=== PATIENT | female | born 1990 | race Caucasian/White ===

== ENCOUNTER 2016-09-27 23:25 | Emergency (ER) | payer OTHER ==
[2016-09-28 01:15] LABS: BASOPHIL 0.3 % (0-2); EOSINOPHIL 2.1 % (0-5); HCT 41.5 % (37.0-47.0); HGB 14.3 g/dl (12.5-16.0); LYMPHOCYTE 18.7 % (15-48); MCH 31.5 pg (25.0-31.0); MCHC 34.5 g/dL (32.0-36.0); MCV 91.4 fL (78.0-100.0); MONOCYTE 6.8 % (0-12); MPV 10.9 fL (6.0-9.5); NEUTROPHIL 72.1 % (41-80); PLT 263 K/uL (150-400); RBC 4.54 M/uL (4.20-5.40); RDW 12.4 % (11.5-14.0)
[2016-09-28 01:37] LABS: ALBUMIN 4.6 g/dL (3.5-5.0); BILIRUBIN - TOTAL 0.3 mg/dL (0.1-1.0); CREATININE 0.7 mg/dL (0.5-1.0); GLOBULIN (CALCULATION) 2.9 g/dL (2.2-4.2); POTASSIUM 3.8 mmol/L (3.5-5.1); TOTAL PROTEIN 7.5 g/dL (6.4-8.3)
== END 2016-09-28 02:27 | disposition home or self-care (01) ==
LOC: FER 23:25
PROVIDERS: Emergency Medicine
DX: R10.9 Unspecified abdominal pain (principal); R11.0 Nausea
CPT/HCPCS: 36415; 80053; 83690; 85025

== ENCOUNTER 2020-12-15 18:13 | Emergency (ER) | payer OTHER ==
[~2020-12-15 18:13] MED LIST: AMOXICILLIN500 MG PO; BIAXIN500 MG PO; PREVACID30 MG PO
[2020-12-15 19:40] LABS: BASOPHIL 0.5 % (0-2); EOSINOPHIL 1.5 % (0-5); HCT 42.3 % (37.0-47.0); HGB 14.4 g/dl (12.5-16.0); LYMPHOCYTE 19.8 % (15-48); MCH 31.3 pg (25.0-31.0); MONOCYTE 5.8 % (0-12); MPV 10.6 fL (6.0-9.5); NEUTROPHIL 72.1 % (41-80); NRBC 0; PLT 325 K/uL (150-400); RDW 12.5 % (11.5-14.0); WBC 13.7 K/uL (4.0-10.5)
[2020-12-15 19:59] LABS: BILIRUBIN - TOTAL 0.2 mg/dL (0.2-1.0); BUN/CREAT RATIO (CALC) 11.9 RATIO; CREATININE 0.67 mg/dL (0.51-0.95); GLOBULIN (CALCULATION) 4.4 g/dL; POTASSIUM 3.9 mmol/L (3.5-5.1); TOTAL PROTEIN 8.4 g/dL (6.4-8.2)
[2021-01-25] MEDS ORDERED: DEPO-PROVE150 MG/11 IN (15:20)
[2021-02-02] MEDS ORDERED: PERCOCET 5-3251 EACH PO (11:37)
== END 2020-12-16 01:50 | disposition home or self-care (01) ==
LOC: FER 18:13
PROVIDERS: Internal Medicine
DX: R07.89 Other chest pain (principal)
CPT/HCPCS: 36415; 71045; 80053; 84484; 85025; 85379; 93005

== ENCOUNTER 2021-01-02 05:16 | Emergency (ER) | payer OTHER ==
[2021-01-25] MEDS ORDERED: DEPO-PROVE150 MG/11 IN (15:20)
[2021-02-02] MEDS ORDERED: PERCOCET 5-3251 EACH PO (11:37)
== END 2021-01-02 07:25 | disposition home or self-care (01) ==
LOC: FER 05:16
DX: S46.811A Strain of other muscles, fascia and tendons at shoulder and upper arm level, right arm, initial encounter (principal); X58.XXXA Exposure to other specified factors, initial encounter
CPT/HCPCS: 73030

== ENCOUNTER 2021-01-16 21:32 | Emergency (ER) | payer OTHER ==
[2021-01-16 23:44] LABS: BASOPHIL 0.5 % (0-2); EOSINOPHIL 2.1 % (0-5); HCT 41.2 % (37.0-47.0); HGB 14.2 g/dl (12.5-16.0); MCH 31.8 pg (25.0-31.0); MCHC 34.5 g/dL (32.0-36.0); MCV 92.2 fL (78.0-100.0); MONOCYTE 6.5 % (0-12); MPV 10.6 fL (6.0-9.5); NEUTROPHIL 59.6 % (41-80); NRBC 0; PLT 299 K/uL (150-400); RBC 4.47 M/uL (4.20-5.40); RDW 11.9 % (11.5-14.0); WBC 13.8 K/uL (4.0-10.5)
[2021-01-17 00:02] LABS: BILIRUBIN - TOTAL 0.2 mg/dL (0.2-1.0); BUN/CREAT RATIO (CALC) 17.6 RATIO; CREATININE 0.74 mg/dL (0.51-0.95); GLOBULIN (CALCULATION) 4.5 g/dL; POTASSIUM 3.8 mmol/L (3.5-5.1); TOTAL PROTEIN 8.5 g/dL (6.4-8.2)
[2021-01-17] MEDS ORDERED: ONDANSETRON ODT4 MG PO (00:56)
[2021-01-17] MEDS ORDERED: HYDROCODON-ACE1 EAC2 PO (00:56)
[2021-01-25] MEDS ORDERED: DEPO-PROVE150 MG/11 IN (15:20)
[2021-02-02] MEDS ORDERED: PERCOCET 5-3251 EACH PO (11:37)
== END 2021-01-17 01:02 | disposition home or self-care (01) ==
LOC: FER 21:32
PROVIDERS: Emergency Medicine
DX: K80.50 Calculus of bile duct without cholangitis or cholecystitis without obstruction (principal)
CPT/HCPCS: 36415; 71046; 80053; 82150; 83690; 85025; J1885

== ENCOUNTER 2021-01-18 22:48 | Emergency (ER) | payer OTHER ==
[~2021-01-18 22:48] MED LIST changes: +HYDROCODON-ACE1 EAC2 PO; +ONDANSETRON ODT4 MG PO
[2021-01-19 01:31] LABS: BASOPHIL 0.4 % (0-2); EOSINOPHIL 2.4 % (0-5); HCT 39.9 % (37.0-47.0); HGB 13.6 g/dl (12.5-16.0); LYMPHOCYTE 33.2 % (15-48); MCH 31.5 pg (25.0-31.0); MCHC 34.1 g/dL (32.0-36.0); MCV 92.4 fL (78.0-100.0); MONOCYTE 7.3 % (0-12); MPV 11.4 fL (6.0-9.5); NEUTROPHIL 56.4 % (41-80); NRBC 0; PLT 293 K/uL (150-400); RBC 4.32 M/uL (4.20-5.40); RDW 11.8 % (11.5-14.0); WBC 14.1 K/uL (4.0-10.5)
[2021-01-19 01:42] LABS: ALBUMIN 3.6 g/dL (3.4-5.0); BILIRUBIN - TOTAL 0.2 mg/dL (0.2-1.0); BUN/CREAT RATIO (CALC) 18.2 RATIO; CREATININE 0.66 mg/dL (0.51-0.95); GLOBULIN (CALCULATION) 4.2 g/dL; POTASSIUM 4.1 mmol/L (3.5-5.1); TOTAL PROTEIN 7.8 g/dL (6.4-8.2)
[2021-01-19 01:45] LABS: LACTIC ACID 0.8 mmol/L (0.4-1.9)
[2021-01-19] MEDS ORDERED: PEPCID AC20 MG PO (02:53)
[2021-01-19] MEDS ORDERED: MIRALAX 238GM238 GM PO (02:53)
[2021-01-19] MEDS ORDERED: BENTYL10 MG PO (02:53)
[2021-01-25] MEDS ORDERED: DEPO-PROVE150 MG/11 IN (15:20)
[2021-02-02] MEDS ORDERED: PERCOCET 5-3251 EACH PO (11:37)
== END 2021-01-19 03:00 | disposition home or self-care (01) ==
LOC: FER 22:48
PROVIDERS: Emergency Medicine Emergency Medical Services
DX: R07.89 Other chest pain (principal); R11.0 Nausea
CPT/HCPCS: 36415; 71045; 80053; 83605; 83690; 84484; 85025; 93005; J1885

== ENCOUNTER → 2021-02-02 | Day surgery (SDC) | payer OTHER ==
[~2021-02-02] VITALS: Ht 170.2 cm; Wt 93.0 kg
[~2021-02-02] MED LIST changes: +BENTYL10 MG PO; +DEPO-PROVE150 MG/11 IN; +FLEXERIL5 MG PO; +MIRALAX 238GM238 GM PO; +ONDANSETRON ODT4 MG SL; +PEPCID AC20 MG PO; +PERCOCET 5-3251 EACH PO
[2021-02-02 08:29] LABS: HCG (URINE) SCREEN NEGATIVE (NEGATIVE)
== END | disposition home or self-care (01) ==
LOC: FAS 07:49
PROVIDERS: Anesthesiology
DX: K81.1 Chronic cholecystitis (principal); K82.8 Other specified diseases of gallbladder; K21.9 Gastro-esophageal reflux disease without esophagitis; E28.2 Polycystic ovarian syndrome; F41.8 Other specified anxiety disorders; Z79.899 Other long term (current) drug therapy; Z79.84 Long term (current) use of oral hypoglycemic drugs; Z77.22 Contact with and (suspected) exposure to environmental tobacco smoke (acute) (chronic); Z87.440 Personal history of urinary (tract) infections
CPT/HCPCS: 84703; J0295; J1100; J1170; J2250; J2405; J2704; J2710; J3010; J7120

== ENCOUNTER 2021-02-08 00:13 | Emergency (ER) | payer OTHER ==
[~2021-02-08 00:13] MED LIST changes: -FLEXERIL5 MG PO; -ONDANSETRON ODT4 MG SL
[2021-02-08 01:34] LABS: HCT 41.2 % (37.0-47.0); HGB 13.8 g/dl (12.5-16.0); MCH 30.7 pg (25.0-31.0); MCHC 33.5 g/dL (32.0-36.0); MCV 91.6 fL (78.0-100.0); MPV 10.5 fL (6.0-9.5); RBC 4.5 M/uL (4.20-5.40); RDW 11.9 % (11.5-14.0); WBC 13.5 K/uL (4.0-10.5)
[2021-02-08 01:50] LABS: BUN/CREAT RATIO (CALC) 18.8 RATIO; CREATININE 0.8 mg/dL (0.51-0.95); POTASSIUM 4.1 mmol/L (3.5-5.1)
== END 2021-02-08 03:07 | disposition home or self-care (01) ==
LOC: FER 00:13
PROVIDERS: Emergency Medicine
DX: R10.9 Unspecified abdominal pain (principal); Z90.49 Acquired absence of other specified parts of digestive tract
CPT/HCPCS: 36415; 80048; 99284

== ENCOUNTER 2021-02-19 19:24 | Emergency (ER) | payer OTHER ==
[2021-02-19 22:40] LABS: BASOPHIL 0.6 % (0-2); EOSINOPHIL 2.3 % (0-5); HCT 40.2 % (37.0-47.0); HGB 13.4 g/dl (12.5-16.0); LYMPHOCYTE 32.7 % (15-48); MCHC 33.3 g/dL (32.0-36.0); MCV 90.1 fL (78.0-100.0); MONOCYTE 7.1 % (0-12); MPV 10.9 fL (6.0-9.5); NEUTROPHIL 56.9 % (41-80); NRBC 0; PLT 299 K/uL (150-400); RBC 4.46 M/uL (4.20-5.40); RDW 11.9 % (11.5-14.0); WBC 11.7 K/uL (4.0-10.5)
[2021-02-19 22:51] LABS: ALBUMIN 4.1 g/dL (3.4-5.0); BILIRUBIN - TOTAL 0.5 mg/dL (0.2-1.0); BUN/CREAT RATIO (CALC) 11.6 RATIO; CREATININE 0.86 mg/dL (0.51-0.95); GLOBULIN (CALCULATION) 4.1 g/dL; POTASSIUM 3.8 mmol/L (3.5-5.1); TOTAL PROTEIN 8.2 g/dL (6.4-8.2)
[2021-02-19 23:13] LABS: BILIRUBIN NEGATIVE (NEGATIVE); BLOOD 1+ Ery/uL (NEGATIVE); CLARITY CLEAR (CLEAR); COLOR YELLOW (YELLOW); GLUCOSE (U) NORMAL (NORMAL); LEUKOCYTES NEGATIVE Leu/uL (NEGATIVE); NITRITE NEGATIVE (NEGATIVE); PROTEIN NEGATIVE (NEGATIVE); SPECIFIC GRAVITY 1.025 (1.001-1.030); UROBILINOGEN 0.2 mg/dL (0.2-1.0)
[2021-02-19] MEDS ORDERED: ONDANSETRON ODT4 MG SL (23:14)
[2021-02-19 23:19] LABS: BACTERIA TRACE; URINARY WBC RARE
[2021-02-19 23:20] LABS: MUCOUS TRACE
== END 2021-02-19 23:29 | disposition home or self-care (01) ==
LOC: FER 19:24
PROVIDERS: Emergency Medicine Emergency Medical Services
DX: R10.9 Unspecified abdominal pain (principal); R11.0 Nausea; Z90.49 Acquired absence of other specified parts of digestive tract; Z98.890 Other specified postprocedural states; Z87.440 Personal history of urinary (tract) infections
CPT/HCPCS: 36415; 80053; 81001; 83690; 85025; J2405; J7030

== ENCOUNTER 2021-03-12 14:42 | Emergency (ER) | payer OTHER ==
[~2021-03-12 14:42] MED LIST changes: +ONDANSETRON ODT4 MG SL
[2021-03-12 15:12] LABS: BASOPHIL 0.3 % (0-2); EOSINOPHIL 2.3 % (0-5); HCT 40.5 % (37.0-47.0); HGB 13.7 g/dl (12.5-16.0); LYMPHOCYTE 26.1 % (15-48); MCH 30.4 pg (25.0-31.0); MCHC 33.8 g/dL (32.0-36.0); MONOCYTE 5.7 % (0-12); MPV 10.5 fL (6.0-9.5); NEUTROPHIL 65.3 % (41-80); NRBC 0; PLT 290 K/uL (150-400); WBC 11.6 K/uL (4.0-10.5)
[2021-03-12 15:29] LABS: BUN/CREAT RATIO (CALC) 8.9 RATIO; CREATININE 1.01 mg/dL (0.51-0.95); POTASSIUM 3.9 mmol/L (3.5-5.1)
[2021-03-12 15:40] LABS: CKMB <0.5 ng/mL (0.0-3.6)
== END 2021-03-12 16:55 | disposition home or self-care (01) ==
LOC: FER 14:42
PROVIDERS: Emergency Medicine
DX: R07.89 Other chest pain (principal)
CPT/HCPCS: 36415; 71046; 80048; 82553; 84484; 85025; 85379; 93005

== ENCOUNTER 2021-04-11 20:40 | Emergency (ER) | payer OTHER ==
[2021-04-11] MEDS ORDERED: FLEXERIL5 MG PO (21:24)
== END 2021-04-11 21:24 | disposition home or self-care (01) ==
LOC: FER 20:40
DX: M54.2 Cervicalgia (principal)
CPT/HCPCS: 99283; J1885

== ENCOUNTER 2021-05-13 19:38 | Emergency (ER) | payer OTHER ==
[~2021-05-13 19:38] MED LIST changes: +FLEXERIL5 MG PO
[2021-05-13 20:41] LABS: BASOPHIL 0.4 % (0-2); EOSINOPHIL 2.3 % (0-5); HCT 41.8 % (37.0-47.0); LYMPHOCYTE 25.5 % (15-48); MCH 30.8 pg (25.0-31.0); MCHC 33.5 g/dL (32.0-36.0); MCV 91.9 fL (78.0-100.0); MONOCYTE 7.2 % (0-12); MPV 10.7 fL (6.0-9.5); NEUTROPHIL 64.3 % (41-80); NRBC 0; PLT 294 K/uL (150-400); RBC 4.55 M/uL (4.20-5.40); RDW 12.1 % (11.5-14.0); WBC 14.1 K/uL (4.0-10.5)
[2021-05-13 21:05] LABS: BUN/CREAT RATIO (CALC) 15.3 RATIO; CREATININE 0.72 mg/dL (0.51-0.95); POTASSIUM 3.9 mmol/L (3.5-5.1)
[2021-05-13] MEDS ORDERED: MEDROL 4MG DOSEP4 MG PO (22:32)
[2021-05-13] MEDS ORDERED: ROBAXIN750 MG PO (22:32)
== END 2021-05-13 22:48 | disposition home or self-care (01) ==
LOC: FER 19:38
PROVIDERS: Nurse Practitioner Family
DX: R07.89 Other chest pain (principal)
CPT/HCPCS: 36415; 71045; 71275; 80048; 84484; 85025; 85379; 93005; J7512; Q9967

== ENCOUNTER 2021-05-15 00:53 | Emergency (ER) | payer OTHER ==
[~2021-05-15 00:53] MED LIST changes: +MEDROL 4MG DOSEP4 MG PO; +ROBAXIN750 MG PO
[2021-05-15 01:21] LABS: BASOPHIL 0.3 % (0-2); EOSINOPHIL 0.5 % (0-5); HCT 44.2 % (37.0-47.0); LYMPHOCYTE 24.6 % (15-48); MCH 30.7 pg (25.0-31.0); MCHC 33.9 g/dL (32.0-36.0); MCV 90.6 fL (78.0-100.0); MONOCYTE 5.7 % (0-12); MPV 10.8 fL (6.0-9.5); NEUTROPHIL 68.5 % (41-80); NRBC 0; PLT 311 K/uL (150-400); RBC 4.88 M/uL (4.20-5.40); WBC 18.8 K/uL (4.0-10.5)
[2021-05-15 01:36] LABS: INR 1.01 (0.9-1.2); PROTHROMBIN TIME 12.7 SECONDS (11.8-13.4)
[2021-05-15 01:44] LABS: ALBUMIN 4.1 g/dL (3.4-5.0); BILIRUBIN - TOTAL 0.4 mg/dL (0.2-1.0); BUN/CREAT RATIO (CALC) 16.7 RATIO; CREATININE 0.66 mg/dL (0.51-0.95); GLOBULIN (CALCULATION) 4.5 g/dL; POTASSIUM 3.6 mmol/L (3.5-5.1); TOTAL PROTEIN 8.6 g/dL (6.4-8.2)
[2021-05-15] MEDS ORDERED: FLEXERIL5 MG PO (02:53)
[2021-05-15] MEDS ORDERED: PREDNISOLO15 MG/5 ML PO (02:53)
== END 2021-05-15 03:08 | disposition home or self-care (01) ==
LOC: FER 00:53
PROVIDERS: Emergency Medicine Emergency Medical Services
DX: R07.89 Other chest pain (principal); M54.6 Pain in thoracic spine
CPT/HCPCS: 36415; 71045; 80053; 84484; 85025; 85610; 85730; 93005; J7510

== ENCOUNTER 2021-05-22 17:21 | Emergency (ER) | payer OTHER ==
[~2021-05-22 17:21] MED LIST changes: +PREDNISOLO15 MG/5 ML PO
[2021-05-22 18:16] LABS: BILIRUBIN NEGATIVE (NEGATIVE); BLOOD TRACE-INTACT Ery/uL (NEGATIVE); CLARITY CLEAR (CLEAR); COLOR YELLOW (YELLOW); GLUCOSE (U) NORMAL (NORMAL); LEUKOCYTES NEGATIVE Leu/uL (NEGATIVE); NITRITE NEGATIVE (NEGATIVE); PROTEIN NEGATIVE (NEGATIVE); SPECIFIC GRAVITY >=1.030 (1.001-1.030); UROBILINOGEN 0.2 mg/dL (0.2-1.0)
[2021-05-22 18:21] LABS: BACTERIA TRACE; SQUAMOUS EPITHELIAL CELLS 20-50; URINARY WBC RARE
[2021-05-22 18:53] LABS: BASOPHIL 0.5 % (0-2); EOSINOPHIL 1.9 % (0-5); HCT 44.1 % (37.0-47.0); HGB 14.9 g/dl (12.5-16.0); MCHC 33.8 g/dL (32.0-36.0); MCV 91.9 fL (78.0-100.0); MONOCYTE 6.9 % (0-12); MPV 10.7 fL (6.0-9.5); NEUTROPHIL 73.2 % (41-80); NRBC 0; PLT 335 K/uL (150-400); RDW 12.1 % (11.5-14.0)
[2021-05-22 19:04] LABS: ALBUMIN 3.9 g/dL (3.4-5.0); BILIRUBIN - TOTAL 0.4 mg/dL (0.2-1.0); BUN/CREAT RATIO (CALC) 13.9 RATIO; CREATININE 0.72 mg/dL (0.51-0.95); GLOBULIN (CALCULATION) 4.4 g/dL; TOTAL PROTEIN 8.3 g/dL (6.4-8.2)
[2021-05-22 21:52] LABS: AMPHETAMINES NEGATIVE (NEGATIVE); BARBITURATES NEGATIVE (NEGATIVE); ECSTASY (MDMA) NEGATIVE (NEGATIVE); MARIJUANA (THC) NEGATIVE (NEGATIVE); METHADONE NEGATIVE (NEGATIVE); OPIATES NEGATIVE (NEGATIVE); OXYCODONE NEGATIVE (NEGATIVE)
[2021-05-22] MEDS ORDERED: ZOFRAN4 M1 PO (22:38)
== END 2021-05-22 22:48 | disposition home or self-care (01) ==
LOC: FER 17:21
PROVIDERS: Emergency Medicine Emergency Medical Services; Nurse Practitioner Family
DX: R10.84 Generalized abdominal pain (principal); R11.2 Nausea with vomiting, unspecified
CPT/HCPCS: 36415; 80053; 80305; 81001; 82150; 83605; 83690; 85025; 87040; J1885; J2405; J7030; Q9967

== ENCOUNTER 2021-06-02 09:34 | Emergency (ER) | payer OTHER ==
[~2021-06-02 09:34] MED LIST changes: +ZOFRAN4 M1 PO
[2021-06-02 11:24] LABS: BILIRUBIN NEGATIVE (NEGATIVE); BLOOD TRACE-INTACT Ery/uL (NEGATIVE); CLARITY CLEAR (CLEAR); COLOR YELLOW (YELLOW); GLUCOSE (U) NORMAL (NORMAL); LEUKOCYTES TRACE Leu/uL (NEGATIVE); NITRITE NEGATIVE (NEGATIVE); PROTEIN NEGATIVE (NEGATIVE); SPECIFIC GRAVITY 1.025 (1.001-1.030); UROBILINOGEN 0.2 mg/dL (0.2-1.0)
[2021-06-02 11:28] LABS: BASOPHIL 0.4 % (0-2); EOSINOPHIL 2.6 % (0-5); HCT 40.5 % (37.0-47.0); HGB 13.8 g/dl (12.5-16.0); LYMPHOCYTE 17.5 % (15-48); MCH 31.5 pg (25.0-31.0); MCHC 34.1 g/dL (32.0-36.0); MCV 92.5 fL (78.0-100.0); MONOCYTE 5.5 % (0-12); NEUTROPHIL 73.8 % (41-80); NRBC 0; PLT 283 K/uL (150-400); RBC 4.38 M/uL (4.20-5.40); RDW 12.2 % (11.5-14.0); WBC 12.5 K/uL (4.0-10.5)
[2021-06-02 11:36] LABS: BACTERIA 1+; MUCOUS LARGE; SQUAMOUS EPITHELIAL CELLS >50; URINARY RBC RARE
[2021-06-02 12:21] LABS: HCG (URINE) SCREEN NEGATIVE (NEGATIVE)
[2021-06-02 12:31] LABS: ALBUMIN 3.6 g/dL (3.4-5.0); BILIRUBIN - TOTAL 0.4 mg/dL (0.2-1.0); BUN/CREAT RATIO (CALC) 13.4 RATIO; CREATININE 0.67 mg/dL (0.51-0.95); GLOBULIN (CALCULATION) 4.2 g/dL; POTASSIUM 4.1 mmol/L (3.5-5.1); TOTAL PROTEIN 7.8 g/dL (6.4-8.2)
[2021-06-02] MEDS ORDERED: ZOFRAN4 M1 PO (14:27)
[2021-06-02] MEDS ORDERED: NAPROXEN500 MG PO (14:27)
== END 2021-06-02 14:50 | disposition home or self-care (01) ==
LOC: FER 09:34
PROVIDERS: Emergency Medicine
DX: N83.202 Unspecified ovarian cyst, left side (principal)
CPT/HCPCS: 36415; 80053; 81001; 82150; 83690; 83735; 84145; 84703; 85025; J7030; Q9967

== ENCOUNTER 2021-06-30 11:05 | Emergency (ER) | payer OTHER ==
[~2021-06-30 11:05] MED LIST changes: +NAPROXEN500 MG PO
[2021-06-30 12:05] LABS: BASOPHIL 0.6 % (0-2); EOSINOPHIL 2.5 % (0-5); HCT 42.3 % (37.0-47.0); HGB 14.2 g/dl (12.5-16.0); LYMPHOCYTE 22.4 % (15-48); MCH 30.7 pg (25.0-31.0); MCHC 33.6 g/dL (32.0-36.0); MCV 91.4 fL (78.0-100.0); MONOCYTE 6.6 % (0-12); MPV 10.8 fL (6.0-9.5); NEUTROPHIL 67.5 % (41-80); NRBC 0; PLT 312 K/uL (150-400); RBC 4.63 M/uL (4.20-5.40); WBC 9.8 K/uL (4.0-10.5)
[2021-06-30 12:12] LABS: BILIRUBIN NEGATIVE (NEGATIVE); BLOOD NEGATIVE Ery/uL (NEGATIVE); CLARITY CLEAR (CLEAR); COLOR YELLOW (YELLOW); GLUCOSE (U) NORMAL (NORMAL); LEUKOCYTES NEGATIVE Leu/uL (NEGATIVE); NITRITE NEGATIVE (NEGATIVE); PROTEIN NEGATIVE (NEGATIVE); SPECIFIC GRAVITY 1.025 (1.001-1.030); UROBILINOGEN 0.2 mg/dL (0.2-1.0)
[2021-06-30 12:37] LABS: ALBUMIN 3.9 g/dL (3.4-5.0); BILIRUBIN - TOTAL 0.8 mg/dL (0.2-1.0); BUN/CREAT RATIO (CALC) 18.1 RATIO; CREATININE 0.72 mg/dL (0.51-0.95); GLOBULIN (CALCULATION) 4.2 g/dL; TOTAL PROTEIN 8.1 g/dL (6.4-8.2)
== END 2021-06-30 15:10 | disposition home or self-care (01) ==
LOC: FER 11:05
PROVIDERS: Emergency Medicine
DX: R10.31 Right lower quadrant pain (principal); Z20.822 Contact with and (suspected) exposure to COVID-19
CPT/HCPCS: 36415; 80053; 81003; 83690; 85025; J2405; J7030; U0002

== ENCOUNTER 2021-08-22 23:24 | Emergency (ER) | payer OTHER ==
[~2021-08-22 23:24] MED LIST changes: +BACLOFEN 10MG T10 MG PO; +ETODOLAC300 MG PO
[2021-08-23 02:28] LABS: CORONAVIRUS 2019 SARS-COV-2 NEGATIVE (NEGATIVE); INFLUENZA A NAA NEGATIVE (NEGATIVE)
== END 2021-08-23 01:55 | disposition home or self-care (01) ==
LOC: FER 23:24
PROVIDERS: Emergency Medicine Emergency Medical Services
DX: R00.2 Palpitations (principal); T50.995A Adverse effect of other drugs, medicaments and biological substances, initial encounter; Z20.822 Contact with and (suspected) exposure to COVID-19
CPT/HCPCS: 71045; 93005; U0002

== ENCOUNTER 2021-08-27 04:41 | Emergency (ER) | payer OTHER ==
[2021-08-27 05:11] LABS: HCT 41.7 % (37.0-47.0); HGB 14.2 g/dl (12.5-16.0); MCH 31.1 pg (25.0-31.0); MCHC 34.1 g/dL (32.0-36.0); MCV 91.2 fL (78.0-100.0); MPV 10.4 fL (6.0-9.5); RBC 4.57 M/uL (4.20-5.40); RDW 12.2 % (11.5-14.0); WBC 17.7 K/uL (4.0-10.5)
[2021-08-27] MEDS ORDERED: ZPAK PO (05:27)
[2021-08-27 05:31] LABS: BUN/CREAT RATIO (CALC) 20.3 RATIO; CREATININE 0.69 mg/dL (0.51-0.95); POTASSIUM 3.7 mmol/L (3.5-5.1)
== END 2021-08-27 05:58 | disposition home or self-care (01) ==
LOC: FER 04:41
PROVIDERS: Emergency Medicine
DX: R07.89 Other chest pain (principal)
CPT/HCPCS: 36415; 71045; 80048; 84484; 93005

== ENCOUNTER 2021-08-31 00:19 | Emergency (ER) | payer OTHER ==
[~2021-08-31 00:19] MED LIST changes: +ZPAK PO
[2021-08-31 01:35] LABS: BASOPHIL 0.3 % (0-2); EOSINOPHIL 1.6 % (0-5); HCT 40.9 % (37.0-47.0); HGB 13.8 g/dl (12.5-16.0); LYMPHOCYTE 23.6 % (15-48); MCH 31.2 pg (25.0-31.0); MCHC 33.7 g/dL (32.0-36.0); MCV 92.3 fL (78.0-100.0); MONOCYTE 6.8 % (0-12); MPV 10.3 fL (6.0-9.5); NEUTROPHIL 67.4 % (41-80); NRBC 0; PLT 360 K/uL (150-400); RBC 4.43 M/uL (4.20-5.40); RDW 12.3 % (11.5-14.0); WBC 17.3 K/uL (4.0-10.5)
[2021-08-31 01:50] LABS: BUN/CREAT RATIO (CALC) 14.7 RATIO; CREATININE 0.68 mg/dL (0.51-0.95); POTASSIUM 3.8 mmol/L (3.5-5.1)
[2021-08-31 02:03] LABS: CORONAVIRUS 2019 SARS-COV-2 NEGATIVE (NEGATIVE); INFLUENZA A NAA NEGATIVE (NEGATIVE)
[2021-08-31] MEDS ORDERED: VIBRAMYCIN100 MG PO (03:05)
[2021-08-31] MEDS ORDERED: CEFDINIR300 MG PO (03:05)
[2021-08-31] MEDS ORDERED: PREDNISONE 20MG20 MG PO (03:07)
== END 2021-08-31 05:14 | disposition home or self-care (01) ==
LOC: FER 00:19
PROVIDERS: Internal Medicine
DX: J18.9 Pneumonia, unspecified organism (principal); Z20.822 Contact with and (suspected) exposure to COVID-19; Z88.1 Allergy status to other antibiotic agents
CPT/HCPCS: 36415; 71045; 80048; 84145; 84484; 85025; 93005; J2930; U0002

== ENCOUNTER → 2021-09-13 | Day surgery (SDC) | payer OTHER ==
[~2021-09-13] VITALS: Ht 170.2 cm; Wt 97.5 kg
[~2021-09-13] MED LIST changes: +CEFDINIR300 MG PO; +PREDNISONE 20MG20 MG PO; +VIBRAMYCIN100 MG PO
[2021-09-13 09:13] LABS: HCG (URINE) SCREEN NEGATIVE (NEGATIVE)
== END | disposition home or self-care (01) ==
LOC: FAS 08:51
PROVIDERS: Anesthesiology
DX: K59.00 Constipation, unspecified (principal); R14.0 Abdominal distension (gaseous); N39.0 Urinary tract infection, site not specified; Z90.49 Acquired absence of other specified parts of digestive tract; E28.2 Polycystic ovarian syndrome; R00.2 Palpitations
CPT/HCPCS: 84703; J2250; J2704; J7120

== ENCOUNTER 2021-09-14 17:36 | Emergency (ER) | payer OTHER | END 2021-09-14 18:53 | disposition home or self-care (01) | LOC: FER 17:36 | DX: J35.8 Other chronic diseases of tonsils and adenoids (principal) | CPT/HCPCS: 99283; J1100 ==

== ENCOUNTER 2022-01-13 02:15 | Emergency (ER) | payer OTHER ==
[2022-01-13 03:22] LABS: BASOPHIL 0.4 % (0-2); EOSINOPHIL 1.5 % (0-5); HCT 40.6 % (37.0-47.0); HGB 13.9 g/dl (12.5-16.0); LYMPHOCYTE 22.5 % (15-48); MCH 31.3 pg (25.0-31.0); MCHC 34.2 g/dL (32.0-36.0); MCV 91.4 fL (78.0-100.0); MONOCYTE 6.9 % (0-12); MPV 10.6 fL (6.0-9.5); NEUTROPHIL 67.9 % (41-80); NRBC 0; PLT 286 K/uL (150-400); RBC 4.44 M/uL (4.20-5.40); RDW 12.2 % (11.5-14.0); WBC 14.6 K/uL (4.0-10.5)
[2022-01-13 03:32] LABS: BILIRUBIN NEGATIVE (NEGATIVE); BLOOD 3+ Ery/uL (NEGATIVE); CLARITY CLEAR (CLEAR); COLOR YELLOW (YELLOW); GLUCOSE (U) NORMAL (NORMAL); LEUKOCYTES NEGATIVE Leu/uL (NEGATIVE); NITRITE NEGATIVE (NEGATIVE); PROTEIN NEGATIVE (NEGATIVE); SPECIFIC GRAVITY >=1.030 (1.001-1.030); UROBILINOGEN 0.2 mg/dL (0.2-1.0)
[2022-01-13 03:36] LABS: CREATININE 0.75 mg/dL (0.51-0.95)
[2022-01-13 03:41] LABS: MUCOUS LARGE; URINARY RBC 20-50; URINARY WBC RARE
[2022-01-13] MEDS ORDERED: NAPROXEN500 MG PO (04:30)
== END 2022-01-13 04:45 | disposition home or self-care (01) ==
LOC: FER 02:15
PROVIDERS: Internal Medicine
DX: N94.6 Dysmenorrhea, unspecified (principal)
CPT/HCPCS: 36415; 80048; 81001; 85025; J1885

== ENCOUNTER 2022-02-21 12:27 | Emergency (ER) | payer OTHER ==
[2022-02-21 13:04] LABS: BASOPHIL 0.5 % (0-2); EOSINOPHIL 0.8 % (0-5); HCT 41.5 % (37.0-47.0); HGB 14.2 g/dl (12.5-16.0); LYMPHOCYTE 6.1 % (15-48); MCH 31.6 pg (25.0-31.0); MCHC 34.2 g/dL (32.0-36.0); MCV 92.2 fL (78.0-100.0); MPV 10.4 fL (6.0-9.5); NEUTROPHIL 84.2 % (41-80); NRBC 0; PLT 265 K/uL (150-400); RDW 12.1 % (11.5-14.0); WBC 8.2 K/uL (4.0-10.5)
[2022-02-21 13:25] LABS: BILIRUBIN - TOTAL 0.3 mg/dL (0.2-1.0); BUN/CREAT RATIO (CALC) 8.9 RATIO; CREATININE 0.79 mg/dL (0.51-0.95); GLOBULIN (CALCULATION) 3.8 g/dL; POTASSIUM 3.8 mmol/L (3.5-5.1); TOTAL PROTEIN 7.8 g/dL (6.4-8.2)
[2022-02-22] MEDS ORDERED: PAXLOVID CO-PA1 EAC1 PO (03:55)
== END 2022-02-21 13:50 | disposition home or self-care (01) ==
LOC: FER 12:27
PROVIDERS: Emergency Medicine
DX: J32.9 Chronic sinusitis, unspecified (principal); Z28.310 Unvaccinated for COVID-19
CPT/HCPCS: 36415; 80053; 85025; J1885; J2405; J7030

== ENCOUNTER 2022-02-22 02:02 | Emergency (ER) | payer OTHER ==
[2022-02-22 03:52] LABS: INFLUENZA A NAA NEGATIVE (NEGATIVE)
[2022-02-22 03:54] LABS: CORONAVIRUS 2019 SARS-COV-2 POSITIVE (NEGATIVE)
[2022-02-22] MEDS ORDERED: PAXLOVID CO-PA1 EAC1 PO (03:55)
== END 2022-02-22 04:30 | disposition home or self-care (01) ==
LOC: FER 02:02
PROVIDERS: Emergency Medicine
DX: U07.1 COVID-19 (principal); Z28.310 Unvaccinated for COVID-19
CPT/HCPCS: J1200; J1885; J2405; J7030; U0002

== ENCOUNTER 2022-03-14 22:55 | Emergency (ER) | payer OTHER ==
[~2022-03-14 22:55] MED LIST changes: +PAXLOVID CO-PA1 EAC1 PO
[2022-03-15 00:40] LABS: BASOPHIL 0.3 % (0-2); EOSINOPHIL 0.8 % (0-5); HCT 39.7 % (37.0-47.0); HGB 13.7 g/dl (12.5-16.0); LYMPHOCYTE 21.1 % (15-48); MCH 31.5 pg (25.0-31.0); MCHC 34.5 g/dL (32.0-36.0); MCV 91.3 fL (78.0-100.0); MONOCYTE 7.3 % (0-12); MPV 10.7 fL (6.0-9.5); NEUTROPHIL 70.2 % (41-80); NRBC 0; PLT 279 K/uL (150-400); RBC 4.35 M/uL (4.20-5.40); RDW 12.1 % (11.5-14.0); WBC 17.2 K/uL (4.0-10.5)
[2022-03-15 00:56] LABS: ALBUMIN 3.6 g/dL (3.4-5.0); ALKALINE PHOSHATASE 96 U/L (46-116); ALT 39 U/L (14-59); AST 19 U/L (15-37); BILIRUBIN - TOTAL 0.2 mg/dL (0.2-1.0); BUN 7 mg/dL (7-18); BUN/CREAT RATIO (CALC) 10.1 RATIO; CHLORIDE 101 mmol/L (98-107); CO2 (BICARBONATE) 27 mmol/L (21-32); CREATININE 0.69 mg/dL (0.51-0.95); GLOBULIN (CALCULATION) 3.8 g/dL; GLUCOSE 94 mg/dL (74-106); POTASSIUM 3.5 mmol/L (3.5-5.1); TOTAL PROTEIN 7.4 g/dL (6.4-8.2)
[2022-03-15 01:08] LABS: BILIRUBIN NEGATIVE (NEGATIVE); BLOOD NEGATIVE Ery/uL (NEGATIVE); CLARITY CLEAR (CLEAR); COLOR YELLOW (YELLOW); GLUCOSE (U) NORMAL (NORMAL); LEUKOCYTES NEGATIVE Leu/uL (NEGATIVE); NITRITE NEGATIVE (NEGATIVE); PROTEIN NEGATIVE (NEGATIVE); SPECIFIC GRAVITY >=1.030 (1.001-1.030); UROBILINOGEN 0.2 mg/dL (0.2-1.0)
[2022-03-15 01:20] LABS: AMPHETAMINES NEGATIVE (NEGATIVE); BARBITURATES NEGATIVE (NEGATIVE); ECSTASY (MDMA) NEGATIVE (NEGATIVE); MARIJUANA (THC) NEGATIVE (NEGATIVE); METHADONE NEGATIVE (NEGATIVE); OPIATES NEGATIVE (NEGATIVE); OXYCODONE NEGATIVE (NEGATIVE)
[2022-03-15 01:41] LABS: CORONAVIRUS 2019 SARS-COV-2 NEGATIVE (NEGATIVE); INFLUENZA A NAA NEGATIVE (NEGATIVE)
[2022-03-15] MEDS ORDERED: AZITHROMYCIN250 MG PO (04:25)
[2022-03-15] MEDS ORDERED: MEDROL 4MG DOSEP4 MG PO (04:25)
== END 2022-03-15 04:38 | disposition home or self-care (01) ==
LOC: FER 22:55
PROVIDERS: Internal Medicine
DX: R07.81 Pleurodynia (principal); Z20.822 Contact with and (suspected) exposure to COVID-19; Z28.310 Unvaccinated for COVID-19
CPT/HCPCS: 36415; 71045; 80053; 80305; 81003; 84145; 84484; 85025; 85379; 93005; G0480; J0696; J1100; J1885; U0002